=== PATIENT | female | born 2000 | race Two or more races ===

== ENCOUNTER 2021-11-26 15:10 | Outpatient (CLI) | payer OTHER | END 2021-11-26 16:10 | disposition home or self-care (01) | LOC: ASH CLINIC 15:10 | DX: U07.1 COVID-19 (principal) ==

== ENCOUNTER 2022-10-11 08:58 | Outpatient (CLI) | payer OTHER | END 2022-10-11 09:05 | disposition home or self-care (01) | LOC: SONOGRAMA 08:58 | PROVIDERS: ATTEND Pathology Anatomic Pathology & Clinical Pathology | DX: E04.2 Nontoxic multinodular goiter (principal) ==